=== PATIENT | female | born 1970 | race Hispanic/Latino ===

== ENCOUNTER 2019-03-16 06:56 | Outpatient (CLI) | payer OTHER ==
--- NOTE | 2019-03-16 08:03 | ULT ---
Pelvic sonogram transabdominal imaging with duplex evaluation HISTORY: Pelvic pain and bleeding. FINDINGS: Urinary bladder is incompletely distended. Uterus has a heterogeneous echotexture measuring up to 10.8 cm. Endometrium is 0.7 cm. Physiologic amount of free fluid within the cul-de-sac. Right ovary is 3.4 cm and left is 3.6 cm. Each contains follicles and demonstrates good color and spe ctral Doppler flow. IMPRESSION: Normal pelvic sonogram.
== END 2019-03-16 06:57 | disposition home or self-care (01) ==
LOC: BICULT 06:56
PROVIDERS: ATTEND Family Medicine
DX: N92.0 Excessive and frequent menstruation with regular cycle (principal); D50.0 Iron deficiency anemia secondary to blood loss (chronic); N85.2 Hypertrophy of uterus
CPT/HCPCS: 76856; 93976